=== PATIENT | female | born 1980 | race Caucasian/White ===

== ENCOUNTER 2016-09-04 14:35 | Emergency (ER) | payer OTHER ==
[2016-09-04 14:50] VITALS: TEMP 98.6
--- NOTE | 2016-09-04 15:20 | CPEKG ---
Heart Rate: 73 RR Interval: 822 P-R Interval: 123 QRSD Interval: 84 QT Interval: 372 QTC Interval: 410 P [place]: 0 QRS [place]: 55 T Wave G[place]: 41 EKG Severity - NORMAL ECG - EKG Impression: SINUS RHYTHM Electronically Signed By: Mumtaz Vang 04-Sep-2016 21:01:34
[2016-09-04 15:27] LABS: % IMMATURE GRANULYOCYTES 0.2 % (0.0-1.1); ABSOLUTE IMMATURE GRANULOCYTES 0.02 10^3/uL (0.00-0.10); ADD DIFF? NO; ADD MORPH? NO; ADD SCAN? NO; ATYPICAL LYMPHOCYTE FLAG 30 (0-99); FRAGMENT RBC FLAG 0 (0-99); HEMATOCRIT 32.3 % (38.0-47.0); HEMOGLOBIN 10.2 g/dL (12.6-16.3); LEFT SHIFT FLG 0 (0-99); LIPEMIA HEMOLYSIS FLAG 80 (0-99); MEAN CELL HEMOGLOBIN 26.5 pg (27.9-34.1); MEAN CELL HEMOGLOBIN CONCENTR. 31.6 g/dL (32.4-36.7); MEAN CELL VOLUME 83.9 fL (81.5-99.8); MEAN PLATELET VOLUME 9.1 fL (8.7-11.7); PLATELET CLUMPS FLAG 0 (0-99); PLATELET COUNT 530 10^3/uL (150-400); RED BLOOD CELL COUNT 3.85 10^6/uL (4.18-5.33); RED CELL DISTRIBUTION WIDTH 16.4 % (11.5-15.2)
[2016-09-04 15:41] LABS: ANION GAP 16 mEq/L (8-16); CALCIUM 10.1 mg/dL (8.5-10.4); CARBON DIOXIDE 26 mEq/l (22-31); CHLORIDE 101 mEq/L (97-110); CREATININE 0.6 mg/dL (0.6-1.0); GLOMERULAR FILTRATION RATE > 60; GLUCOSE 85 mg/dL (70-100); POTASSIUM 3.9 mEq/L (3.5-5.2); SODIUM 143 mEq/L (134-144)
[2016-09-04 15:52] LABS: TROPONIN I < 0.012 ng/mL (0-0.034)
--- NOTE | 2016-09-04 15:58 | EDPHY ---
H & P Stated Complaint: x several months, intermittent SOB on exertion, intermittent rt CP Time Seen by Provider: 09/04/16 15:10 HPI/ROS: CHIEF COMPLAINT: Dyspnea, chest pain HISTORY OF PRESENT ILLNESS: The patient is a 36 y/o female arriving with her family member complaining of an episode of dyspnea and lightheadedness while running today. She reports she began experiencing intermittent episodes of chest pain and dyspnea over two months ago that do not necessarily occur at the same time. She sometimes get right-sided chest pain that radiates to her back while at rest. She noticed some "sporadic" dyspnea only during exertion as early as April 2016, with a particularly bad episode in May when she was hiking at altitude. The episodes have become more frequent since moving to [place] from [place] 10 days ago. She says the dyspnea and chest pain do not often occur at the same time and she does not always experience dyspnea during exertion. Today shortly after starting a run she began to have shortness of breath and self-described "shallow, rapid breathing." She then became lightheaded and felt tingling in her hands. She did not have chest pain or nausea during this episode. She denies cough, cold, fever, or congestion. No history of asthma or allergies, cardiac disease. REVIEW OF SYSTEMS: A 10 point review of systems was performed and is negative with the exception of the elements mentioned in the history of present illness. PHYSICAL EXAM: General Appearance: Alert, well hydrated, appropriate, and non-toxic appearing. Head: Atraumatic without scalp tenderness or obvious injury Eyes: Pupils equal, round, reactive to light and accommodation, EOMI, no trauma , no injection. Ears: Clear bilaterally, no perforation, normal landmarks Nose: Atraumatic, no rhinorrhea, clear. Throat: There is no erythema or exudates, no lesions, normal tonsils, mucus membranes moist. Neck: Supple, 2+ carotid upstroke, non-tender, no lymphadenopathy. Respiratory: No retractions, no distress, no wheezes, and no accessory muscle use. Lungs are clear to auscultation bilaterally. Cardiovascular: Regular rate and rhythm, no murmurs, rubs, or gallops. Bilateral carotid, radial, dorsalis pedis, and posterior tibial pulses intact. Good capillary refill all extremities. Gastrointestinal: Abdomen is soft, non-tender, non-distended, no masses, no rebound, no guarding, no peritoneal signs. Musculoskeletal: Normal active ROM of all extremities, atraumatic. Neurological: Alert, appropriate, and interactive. The patient has normal DTRs and non-focal cranial nerves, motor, sensory, and cerebellar exam. Skin: No rashes, good turgor, no nodules on palpation. PAST MEDICAL HISTORY: Denies PAST SURGICAL HISTORY: Denies SOCIAL HISTORY: Family member at bedside DIAGNOSTICS/PROCEDURES/CRITICAL CARE TIME: Study: Chest x-ray Indication: Dyspnea, chest pain Results: Chest x-ray was obtained. The results of the study are negative. Radiologist report pending. I viewed the images myself on the PACS system. The 12 lead EKG was interpreted by myself. Sinus rhythm rate 73. See hard copy and/or "tracemaster" electronic copy for interpretation. DIFFERENTIAL DIAGNOSIS: The differential diagnosis for the patient's shortness of breath and hypoxemia included but was not limited to pneumonia, myocardial infarction, acute mountain sickness, high altitude pulmonary edema, congestive heart failure, and pulmonary embolus. MEDICAL DECISION MAKING: This is a healthy 36 y/o female who presents with a several month history of apparent exercise-induced reactive airways disease that is worse at altitude. Her exam is normal and her breath sounds are clear. An IV was established and labs drawn. Her troponin and d-dimer are negative. Chest x-ray and EKG are normal. She will be discharged with albuterol inhaler and referral to pulmonology. Return precautions given. She is comfortable with this plan. - Personal History LMP (Females 10-55): 1-7 Days Ago Current Tetanus/Diphtheria Vaccine: Yes Current Tetanus Diphtheria and Acellular Pertussis (TDAP): Yes Tetanus Vaccine Date: 2009 - Medical/Surgical History Hx Asthma: No Hx Chronic Respiratory Disease: No Hx Diabetes: No Hx Cardiac Disease: No Hx Renal Disease: No Hx Cirrhosis: No Hx Alcoholism: No Hx HIV/AIDS: No Hx Splenectomy or Spleen Trauma: No Other PMH: bladder surgery - Social History Smoking Status: Never smoked Constitutional: Initial Vital Signs Temperature (C) 37.0 C 09/04/16 14:47 Heart Rate 92 09/04/16 14:47 Respiratory Rate 16 09/04/16 14:47 Blood Pressure 119/88 H 09/04/16 14:47 O2 Sat (%) 95 09/04/16 14:47 O2 Delivery Mode Room Air Allergies/Adverse Reactions: No Known Allergies Allergy (Unverified 09/04/16 14:47) Home Medications: Medication Instructions Recorded Albuterol [Proventil Inhaler] 1 - 2 puffs IH Q4 #1 mdi 09/04/16 Medical Decision Making - Data Points Laboratory Results: Laboratory Results 09/04/16 15:18 09/04/16 15:18 09/04/16 15:18 WBC 8.79 10^3/uL (3.80-9.50) RBC 3.85 L 10^6/uL (4.18-5.33) Hgb 10.2 L g/dL (12.6-16.3) Hct 32.3 L % (38.0-47.0) MCV 83.9 fL (81.5-99.8) MCH 26.5 L pg (27.9-34.1) MCHC 31.6 L g/dL (32.4-36.7) RDW 16.4 H % (11.5-15.2) Plt Count 530 H 10^3/uL (150-400) MPV 9.1 fL (8.7-11.7) Neut % (Auto) 57.6 % (39.3-74.2) Lymph % (Auto) 31.2 % (15.0-45.0) [place] % (Auto) 7.8 % (4.5-13.0) Eos % (Auto) 2.3 % (0.6-7.6) Baso % (Auto) 0.9 % (0.3-1.7) Nucleat RBC Rel Count 0.0 % (0.0-0.2) Absolute Neuts (auto) 5.06 10^3/uL (1.70-6.50) Absolute Lymphs (auto) 2.74 10^3/uL (1.00-3.00) Absolute Monos (auto) 0.69 10^3/uL (0.30-0.80) Absolute Eos (auto) 0.20 10^3/uL (0.03-0.40) Absolute Basos (auto) 0.08 10^3/uL (0.02-0.10) Absolute Nucleated RBC 0.00 10^3/uL (0-0.01) Immature Gran % 0.2 % (0.0-1.1) Immature Gran # 0.02 10^3/uL (0.00-0.10) D-Dimer < 0.27 ug/mLFEU (0.00-0.50) Sodium 143 mEq/L (134-144) Potassium 3.9 mEq/L (3.5-5.2) Chloride 101 mEq/L (97-110) Carbon Dioxide 26 mEq/l (22-31) Anion Gap 16 mEq/L (8-16) BUN 9 mg/dL (7-23) Creatinine 0.6 mg/dL (0.6-1.0) Estimated GFR > 60 Glucose 85 mg/dL (70-100) Calcium 10.1 mg/dL (8.5-10.4) Troponin I < 0.012 ng/mL (0-0.034) Departure - Departure Disposition: Home, Routine, Self-Care Clinical Impression: Reactive airway disease, exercise-induced Instructions: Reactive Airways Disease (ED) Additional Instructions: 1. Use albuterol inhaler as prescribed for shortness of breath or wheezing. 2. Follow up with Dr. Herndon, director hydrogen storage engineering, next week. 3. Return to the ED for difficulty breathing, chest pain, or other worsening of condition. Referrals: Josue Herndon MD [Medical Doctor] - As per Instructions Prescriptions: Albuterol [Proventil Inhaler] 1 - 2 puffs IH Q4 #1 mdi Report Scribed for: Mumtaz Vang Report Scribed by: Adalgisa Rapp Date of Report: 09/04/16 Time of Report: 15:58
--- NOTE | 2016-09-04 16:44 | DX ---
PA and Lateral Chest X-ray 1603 hours History: Dyspnea and chest pain with recent worsening of symptoms.. Findings: Heart size and pulmonary vasculature are normal. The lungs are clear without infiltrates or effusions. There is no pneumothorax. The osseous structures are intact. Impression: Normal chest x-ray.
[2016-09-04 17:26] VITALS: BP 112/79; PULSE 79; RESP 20; O2SAT 96
== END 2016-09-04 17:25 | disposition home or self-care (01) ==
DX: J45.990 Exercise induced bronchospasm (principal)